=== PATIENT | female | born 1995 | race Caucasian/White ===

== ENCOUNTER 2023-03-10 14:09 | Emergency (ER) | payer BC, MEDICAID, OTHER ==
[2023-03-10 14:21] VITALS: BP 155/96; PULSE 14
== END 2023-03-10 18:27 | disposition left against medical advice (07) ==
LOC: EEVIPCON 14:09 → JD.ED 14:09
DX: Z53.21 Procedure and treatment not carried out due to patient leaving prior to being seen by health care provider (principal)

== ENCOUNTER 2023-04-22 22:13 | Emergency (ER) | payer BC ==
[2023-04-23 00:14] LABS: BASOPHILS ABSOLUTE AUTO 0.01 K/mm3 (0.01-0.08); BASOPHILS PERCENT AUTO 0.1 % (0.1-1.2); EOSINOPHILS ABSOLUTE AUTO 0.15 K/mm3 (0.04-0.36); EOSINOPHILS PERCENT AUTO 1.7 (0.7-5.8); HEMATOCRIT 37.3 % (34.1-44.9); HEMOGLOBIN 12.1 gm/dl (11.2-15.7); IMMATURE GRAN ABSOLUTE AUTO 0.02 K/mm3 (0.00-0.10); IMMATURE GRAN PERCENT AUTO 0.2 % (<=1.0); LYMPHOCYTES ABSOLUTE AUTO 2.85 K/mm3 (1.18-3.74); LYMPHOCYTES PERCENT AUTO 31.7 % (19.3-51.7); MEAN CORPUSCULAR HEMOGLOBIN 26.4 pg (25.6-32.2); MEAN CORPUSCULAR HGB CONC 32.4 g/dl (32.2-35.5); MEAN CORPUSCULAR VOLUME 81.3 fl (79.4-94.8); MEAN PLATELET VOLUME 9.7 fl (9.4-12.3); MONOCYTES ABSOLUTE AUTO 0.59 K/mm3 (0.24-0.36); MONOCYTES PERCENT AUTO 6.6 % (4.7-12.5); NEUTROPHILS ABSOLUTE AUTO 5.38 K/mm3 (1.56-6.13); NEUTROPHILS PERCENT AUTO 59.7 % (34.0-71.1); PLATELET COUNT,PLT 284 K/mm3 (182-369); RED BLOOD CELL COUNT 4.59 M/mm3 (3.98-5.22)
[2023-04-23 00:32] LABS: A/G RATIO 0.9 (1-2); ALBUMIN 3.2 g/dl (3.4-5.0); ANION GAP 12.6 (5-15); BILIRUBIN TOTAL 0.5 mg/dL (0.2-1.0); CALCIUM 8.7 mg/dL (8.5-10.1); CREATININE 0.8 mg/dL (0.55-1.02); EST CRCL DRUG DOSING (CG) 80.41 mL/min; MAGNESIUM 2.2 mg/dL (1.8-2.4); POTASSIUM,K 3.6 mEq/L (3.5-5.1); PROTEIN TOTAL,TP 6.9 g/dl (6.4-8.2)
[2023-04-23 01:00] LABS: CORONAVIRUS COVID-19 NAA NEGATIVE (NEGATIVE); INFLUENZA A NAA NEGATIVE (NEGATIVE); RESPIRATORY SYNCYTIAL VIR NAA NEGATIVE (NEGATIVE)
[2023-04-23 04:27] VITALS: BP 125/62; PULSE 76
== END 2023-04-23 01:30 | disposition home or self-care (01) ==
LOC: JD.ED 22:13
DX: N92.6 Irregular menstruation, unspecified (principal); R55 Syncope and collapse; E66.9 Obesity, unspecified; Z68.43 Body mass index [BMI] 50.0-59.9, adult; Z87.891 Personal history of nicotine dependence; Z88.0 Allergy status to penicillin; Z88.5 Allergy status to narcotic agent; Z20.822 Contact with and (suspected) exposure to COVID-19
CPT/HCPCS: 0241U; 36415; 80053; 83735; 84702; 85025; 86850; 86900; 86901; 99284; 99283